=== PATIENT | male | born 1960 | race Caucasian/White ===

== ENCOUNTER 2017-02-02 08:15 | Inpatient (IN) | payer BC ==
[~2017-02-02 08:15] MED LIST: ACETAMINOPHEN 500 MG TAB PO ONE; ceFAZolin 2 GM/SWFI 2 GM/20 ML SYR IVP ONE; fentaNYL 100 MCG/2 ML INJ IT ONE; morphINE PF 5 MG/10 ML INJ IT ONE
--- NOTE | 2017-02-02 08:55 | CPEKG ---
Heart Rate: 67 RR Interval: 896 P-R Interval: 192 QRSD Interval: 176 QT Interval: 480 QTC Interval: 507 P Patton: 64 QRS Patton: 8 T Wave Patton: 164 EKG Severity - ABNORMAL ECG - EKG Impression: ATRIAL-PACED COMPLEXES EKG Impression: VENTRICULAR PREMATURE COMPLEX EKG Impression: PROBABLE LEFT ATRIAL ABNORMALITY EKG Impression: LEFT BUNDLE BRANCH BLOCK Electronically Signed By: Gilbert Paniagua 04-Feb-2017 13:25:04
[2017-02-02 09:10] LABS: % IMMATURE GRANULYOCYTES 0.6 % (0.0-1.1); ABSOLUTE IMMATURE GRANULOCYTES 0.04 10^3/uL (0.00-0.10); ADD DIFF? NO; ADD MORPH? YES; ADD SCAN? NO; ATYPICAL LYMPHOCYTE FLAG 0 (0-99); FRAGMENT RBC FLAG 20 (0-99); HEMATOCRIT 44.4 % (40.0-51.0); HEMOGLOBIN 13.5 g/dL (13.7-17.5); LEFT SHIFT FLG 0 (0-99); LIPEMIA HEMOLYSIS FLAG 80 (0-99); MEAN CELL HEMOGLOBIN CONCENTR. 30.4 g/dL (32.4-36.7); MEAN CELL VOLUME 75.8 fL (81.5-99.8); PLATELET CLUMPS FLAG 0 (0-99); PLATELET COUNT 224 10^3/uL (150-400); RED BLOOD CELL COUNT 5.86 10^6/uL (4.40-6.38)
[2017-02-02 09:22] LABS: ANION GAP 13 mEq/L (8-16); CALCIUM 9.1 mg/dL (8.5-10.4); CARBON DIOXIDE 29 mEq/l (22-31); CHLORIDE 98 mEq/L (97-110); CREATININE 0.8 mg/dL (0.7-1.3); GLOMERULAR FILTRATION RATE > 60; GLUCOSE 82 mg/dL (70-100); SODIUM 140 mEq/L (134-144)
[2017-02-02] MEDS ORDERED: THROMBIN (BOVINE) 20,000 UNIT VIAL TP ONE ×2 (09:23→13:35)
[2017-02-02] MEDS ORDERED: CITRATE DEXTROSE SOLN 500 ML BAG ONE (09:23)
[2017-02-02] MEDS ORDERED: BUPIVACAINE 0.25% 30 ML SDV ONE (09:23)
[2017-02-02] MEDS ORDERED: BACITRACIN 50,000 UNITS/10 ML SYR IRR ONE (09:24)
[2017-02-02 09:58] LABS: ELLIPTOCYTES 1+
[2017-02-02 09:59] LABS: HYPOCHROMIA 1+; PLATELET ESTIMATE ADEQUATE (ADEQ)
[2017-02-02] MEDS ORDERED: ACETAMINOPHEN 500 MG TAB ONE (10:06)
[2017-02-02] MEDS ORDERED: ceFAZolin 2 GM/SWFI 20 ML SYR IVP ONE (10:06)
[2017-02-02] MEDS ORDERED: HYDROCODONE/APAP 5/325 TAB PO ONE (10:15)
[2017-02-02] MEDS ORDERED: HYDROCODONE/APAP 10/325 TAB PO ONE (10:15)
--- NOTE | 2017-02-02 10:20 | PDHPUP ---
History & Physical Update H&P update statement: This history and physical update is based on an assessment of the patient which was completed after admission or registration (within 24 hours), but prior to the surgery/procedure. H&P update: H&P reviewed & patient examined, no change in patient's condition since H&P completed
[2017-02-02] MEDS ORDERED: MIDAZOLAM 2 MG/2 ML VIAL ONE (10:46)
[2017-02-02] MEDS ORDERED: GABAPENTIN 300 MG CAP PO PRN (10:47)
[2017-02-02] MEDS ORDERED: PRIMIDONE 50 MG TAB PO PRN (10:47)
[2017-02-02] MEDS ORDERED: traMADol 50 MG TAB PO PRN (10:47)
[2017-02-02] MEDS ORDERED: MIDAZOLAM 2 MG/2 ML VIAL IVP ONE (10:49)
--- NOTE | 2017-02-02 10:49 | PDANEPAE ---
LEANN History of Present Illness 56 year old male w/ complex past cardiac history presents for lumbar surgery. 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 Echo done today in pre -op with low normal EF. Previous TAVR. Pacemaker interogated. Greatly appreciate help of Dr. Haylee Blank / Cardiology in facilitating this information today. ANE Past Medical History - Cardiovascular History Hx Hypertension: Yes Hx Arrhythmias: Yes Hx Chest Pain: No Hx Coronary Artery / Peripheral Vascular Disease: Yes Hx CHF / Valvular Disease: Yes Hx Palpitations: No Cardiovascular History Comment: PACEMAKER PLACED 08/2016. CARDIAC ARREST 06/2016 - Pulmonary History Hx COPD: No Hx Asthma/Reactive Airway Disease: No Hx Recent Upper Respiratory Infection: No Hx Oxygen in Use at Home: No Hx Sleep Apnea: Yes Sleep Apnea Screening Result - Last Documented: Positive Pulmonary History Comment: BEKAH USES C-PAP INSTRUCTED TO BRING DOS - Neurologic History Hx Cerebrovascular Accident: No Hx Seizures: Yes Hx Dementia: No Neurologic History Comment: 8 YR HX - Endocrine History Hx Diabetes: No Hypothyroid: No Hyperthyroid: No Obesity: mild - Renal History Hx Renal Disorders: No - Liver History Hx Hepatic Disorders: No - Neurological & Psychiatric Hx Hx Neurological and Psychiatric Disorders: Yes Neurological / Psychiatric History Comment: ANXIETY AND DEPRESSION - Cancer History Hx Cancer: No - Congenital Disorder History Hx Congenital Disorders: No - Other Health History Other Health History: PVD. DDD. STENOSIS. FREQUENT FALLS/BALANCE ISSUES/ USING WALKER. FELL YR AGO INJURING BACK - Chronic Pain History Chronic Pain: Yes (LOWER BACK WITH N/T INTO BLE) - Surgical History Prior Surgeries: PACEMAKER 08/2016 IN [place]. WENC[facility]LAO CAROTID ENDARTERECTOMY 2014 IN [place]. WENCES[facility]O FEMORAL THORACIC GRAFT. AORTIC VALVE REPLACEMENT. STENTS LT EXT ILIAC & LT FEMORAL. LUMBAR FUSION. 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: [employer] LEANN Patient History - Allergies Allergies/Adverse Reactions: No Allergies [NKA] Allergy (Verified 01/25/17 12:14) - Home Medications Home medications: home medication list seen and reviewed Home Medications: ALPRAZolam [Xanax 0.25 MG (*)] 0.25 mg PO DAILY@12 01/25/17 [Last Taken 12:00] Aspirin EC [Aspirin EC 81 mg (*)] 81 mg PO DAILY 01/25/17 [Last Taken 02/02/17 07:00] Atorvastatin Calcium [Lipitor 40 mg (*)] 40 mg PO DAILY 01/25/17 [Last Taken 07:00] Clopidogrel Bisulfate [Clopidogrel] 75 mg PO DAILY 01/25/17 [Last Taken 01/26/17 ] Cyanocobalamin [Vitamin B12 1000MCG/ML (*)] 1,000 mcg IM Q7D 01/25/17 [Last Taken 01/30/17] Docusate Sodium [Colace 100 MG (*)] 100 mg PO BID 01/25/17 [Last Taken 02/02/17 07:00] Escitalopram Oxalate [Lexapro] 10 mg PO DAILY@18 01/25/17 [Last Taken 02/01/17 19:30] Furosemide [Lasix 40 MG (*)] 20 mg PO DAILY 01/25/17 [Last Taken 02/01/17 07:00] Gabapentin [Neurontin 300 MG (*)] 300 mg PO DAILY PRN 01/25/17 [Last Taken 01/31 07:00] Gabapentin [Neurontin 300 MG (*)] 600 mg PO HS 01/25/17 [Last Taken 02/01/17 19: 00] Hydrocodone/Acetaminophen [[place] 7.5-325 Tablet] 2 each PO Q8H PRN 01/25/17 [ Last Taken 02/02/17 02:00] Potassium Chloride [Klor-Con 10] 10 meq PO DAILY 01/25/17 [Last Taken 02/02/17 07:00] Primidone [Mysoline 50mg (RX)] 100 mg PO TID 01/25/17 [Last Taken 02/02/17 07:00 ] RX: Herbals/Supplements -Info Only 1 ea PO DAILY 01/25/17 [Last Taken Unknown] Tamsulosin HCl [Flomax 0.4 MG (*)] 0.4 mg PO DAILY 01/25/17 [Last Taken 07:00] clonazePAM [Klonopin (*)] 1 mg PO HS 01/25/17 [Last Taken 02/01/17 07:00 1/4 TAB ] traMADol [Ultram 50 mg (*)] 50 mg PO Q8H PRN 01/25/17 [Last Taken 01/31/17] Divalproex ER [Depakote ER 250 MG (*)] 250 mg PO DAILY 01/31/17 [Last Taken 07:00] ALPRAZolam [Xanax 0.25 MG (*)] 0.25 mg PO DAILY PRN 02/02/17 [Last Taken Unknown ] Primidone [Mysoline 50mg (RX)] 50 mg PO BID PRN 02/02/17 [Last Taken Unknown] clonazePAM [Klonopin (*)] 0.25 mg PO DAILY@08 02/02/17 [Last Taken Unknown] clonazePAM [Klonopin (*)] 0.5 mg PO DAILY PRN 02/02/17 [Last Taken Unknown] - NPO status NPO Status: no food or drink >8 hours NPO Since - Liquids (Date): 02/02/17 NPO Since - Liquids (Time): 07:30 NPO Since - Solids (Date): 02/01/17 NPO Since - Solids (Time): 19:00 - Anes Hx Anes Hx: no prior problems - Smoking Hx Smoking Status: Former smoker Marijuana use: No - Alcohol Use Alcohol Use: Rarely - Family Anes Hx Family Anes Hx: neg - N/A ANE Labs/Vital Signs - Labs Result Diagrams: 02/02/17 08:55 02/02/17 08:55 - Vital Signs Blood Pressure: 134/83 Heart Rate: 63 Respiratory Rate: 18 O2 Sat (%): 93 Height: 182.88 cm Weight: 92.986 kg ANE Physical Exam - Airway Neck exam: FROM Mallampati Score: Class 2 Mouth exam: poor dentition, mcintosh - Pulmonary Pulmonary: no respiratory distress - Cardiovascular Cardiovascular: regular rate and rhythym - ASA Status ASA Status: III ANE Anesthesia Plan Anesthesia Plan: general endotracheal anesthesia Lines/Monitors: arterial line Total IV Anesthesia: No
[2017-02-02] MEDS ORDERED: REMIFENTANIL HCL 1 MG VIAL ONE ×2 (10:53→13:06)
[2017-02-02] MEDS ORDERED: fentaNYL 100 MCG/2 ML INJ ONE ×2 (10:53→13:17)
[2017-02-02] MEDS ORDERED: PROPOFOL/EMULSION 500 MG/50 ML BOTTLE IV ONE ×2 (10:53→13:05)
[2017-02-02] MEDS ORDERED: PROPOFOL 200 MG/20 ML VIAL ONE (10:53)
[2017-02-02] MEDS ORDERED: PHENYLEPHRINE 10 MG/ML SDV ONE ×2 (10:59→11:57)
[2017-02-02] MEDS ORDERED: NS IV ONE (11:00)
[2017-02-02] MEDS ORDERED: DESMOPRESSIN ACETATE IV ONE (11:00)
[2017-02-02] MEDS ORDERED: LIDOCAINE 2% 5 ML SDV ONE (11:57)
[2017-02-02] MEDS ORDERED: ROCURONIUM 50 MG/5 ML VIAL ONE (11:57)
--- NOTE | 2017-02-02 12:22 | ECHO ---
[email or web address] [address] [address] Main: [phone] Fax: Transthoracic Echocardiogram Name: BEN GUTIERREZ MR#: [id number] Study Date: 02/02/2017 Study Time: 09:44 AM Date of : 1960 Age: 56 year(s) Height: 182.9 cm (72 in.) Weight: 92.99 kg (205 lb.) BSA: 2.15 m2 Gender: Male Examination: Echo Indication: Pre Op Back surgery, Pacemaker, TAVR Image Quality: Contrast: Requested by: Shawn Gonzales BP: 134 mmHg/83 mmHg Heart Rate: Rhythm: Indication: Pre Op Back surgery, Pacemaker, TAVR Procedure Staff Power Digger Operator: Jamir Mccormick Physician: Ryder Ayala Requesting Provider: Measurements: Chambers Valvular Assessment AV/MV Valvular Assessment TV/PV Normal Normal Normal Name Value Range Name Value Range Name Value Range Ao Mary Kay (MM): 3.1 cm (2.2 cm-3.7 AV Vmax: 1.85 m/s (1 m/s-1.7 PV Vmax: 1.05 m/s (0.6 m/s-0.9 cm) m/s) m/s) IVSd (2D): 1.0 cm (0.6 cm-1.1 AV maxP mmHg ( - ) PV PGmax: 4 mmHg ( - ) cm) AV meanP mmHg ( - ) LVDd (2D): 5.3 cm (4.2 cm-5.9 LVOT Vmax: 1.02 m/s (0.7 m/s-1.1 cm) m/s) LVDs (2D): 3.7 cm (2.1 cm-4 NAKITA (Vmax): 1.9 cm2 ( - ) cm) NAKITA (VTI): 2.4 cm ( - ) LVPWd (2D): 1.2 cm (0.6 cm-1 MV E Vmax: 0.89 m/s ( - ) cm) MV A Vmax: 0.67 m/s ( - ) LVOTd 2.1 cm 2.1 cm mm MV E/A: 1.33 ( - ) LVEF (2D): 57 (>=54 %) EF Range: 50-55 % Continued Measurements: Chambers Valvular Assessment AV/MV Name Value Name Value LADs Lon.4 cm MV E/E' Septal: 24.60 LA Area: 20.7 cm2 MV E/E' Lateral: 19.00 LA Volume: 60 ml LA Volume Index: 27.9 ml/m2 Findings: Left Ventricle: Patient: BEN GUTIERREZ Study Date: 02/02/2017 Page 1 of 2 09:44 AM Normal size left ventricle. Low normal left ventricular systolic function. The ejection fraction is estimated to be 50-55 %. Septal wall motion consistent with pacemaker/bundle branch block. Right Ventricle: Normal size right ventricle. There is a pacemaker lead noted in the right ventricle. Right Atrium: The right atrium is normal in size. Mitral Valve: Mild mitral valve leaflet calcification is present. Trivial mitral valve regurgitation. Aortic Valve: There is a TAVR in the aortic position. There are normal gradients with no evidence of perivalvular leaks.. Tricuspid Valve: The tricuspid valve is normal in appearance and function. Trivial tricuspid valve regurgitation. Pulmonic Valve: The pulmonic valve is normal in appearance and function. Aorta: The aorta is normal. Pericardium: No pericardial effusion. (No Signature Object) Patient: BEN GUTIERREZ Study Date: 02/02/2017 Page 2 of 2 09:44 AM [id number]
[2017-02-02] MEDS ORDERED: LR 500 ML IV PRN (13:02)
[2017-02-02] MEDS ORDERED: fentaNYL 100 MCG/2 ML INJ IVP PRN (13:02)
[2017-02-02] MEDS ORDERED: HYDROmorphONE/DILAUDID 1 MG/ML INJ IVP PRN (13:02)
[2017-02-02] MEDS ORDERED: ONDANSETRON 4 MG/2 ML VIAL IVP PRN ×2 (13:02→14:55)
[2017-02-02] MEDS ORDERED: NALOXONE HCL 0.4 MG/ML INJ IVP PRN ×2 (13:02→14:55)
[2017-02-02] MEDS ORDERED: OXYCODONE/APAP 5/325 TAB PO PRN (13:02)
[2017-02-02] MEDS ORDERED: morphINE PF 5 MG/10 ML INJ ONE (13:20)
--- NOTE | 2017-02-02 14:05 | GCON ---
[f rep st] CONSULTATION CARDIOLOGY CONSULT. DATE OF CONSULTATION: 02/02/2017 PRIMARY WINDCHILL ADMINISTRATOR: Lidia Alonso. CHIEF COMPLAINT: Preoperative cardiovascular evaluation. HISTORY OF PRESENT ILLNESS: We were asked by the anesthesia service and Dr. Worthington to visit w ith the patient. I have reviewed approximately 100 pages of outside records and made multiple phone calls to his primary metal roofer's office in an effort to get a complete history. The patient is a 56-year-old male with significant vascular disease. In 2008, he had coronary artery bypass grafting. He has had bilateral CEAs. In June of this year, he suffered an fpm-yo-suveetvy cardiac arrest fr om which he was resuscitated. The etiology of this was felt to be critical aortic stenosis. He was in the ICU with a tracheostomy for approximately 1 month. He ultimately underwent transaortic valve replacement in [place], where he was living at the time. Around this time, he also required bilateral fem pop bypass procedures for vascular complications. It sounds like it was related to the TAVR. He also, around that time, had an endovascular repair of thoracic aortic aneurysm. Shortly after that, he required implant of a dual-chamber [employer] pacemaker. Other history includes hypertension, fa irly small abdominal aortic aneurysm, and significant degenerative joint disease of the lumbar spine for which he now requires surgery. He is having significant lumbosacral pain that limits his activity and is requiring narcotics for sherita n control. This is the reason for his lumbar spine surgery today that is scheduled for Dr. Delicia colin. The patient reports no angina or dyspnea. No palpitations or syncope. No lower extremity carter ma. He is participating in cardiac rehab 3 times per week. He reports that he can ride the [employer] bike and use the [employer] machine with no cardiovascular limitations. He was seen by his primary metal roofer on January 20 and deemed stable for surgery, pending review of the coronary angiogram that he had done in July of this year in [place]. We have requested this actu al record of his catheterization. The patient has not had a recent stress test. PAST MEDICAL HISTORY: 1. Vascular disease as detailed above. 2. Dual chamber pacemaker implant. 3. Coronary disease as detailed above. 4. Valvular disease with history of cardiac arrest and recent TAVR. 5. Paroxysmal atrial fibrillation. 6. Hypertension. 7. Dyslipidemia. 8. Anemia. 9. DJD of the spine. 10. Depression. 11. AAA. 12. Seizure disorder. OUTPATIENT MEDICATIONS: Reviewed and not repeated here. Of note, he has been taking aspirin, but is not on a beta tom. He has remote tobacco history and quit 9 years ago. He drinks 2 glasses of wine nightly. He is and his is at the bedside. FAMILY HISTORY: Notable for coronary disease in multiple relatives. PHYSICAL EXAM: VITAL SIGNS: Blood pressure 134/83, heart rate 63, oxygen saturation 93% on room air . He is afebrile. GENERAL: This is a chronically ill-appearing middle-aged male in no acute distre ss. He has slightly slurred speech that his says has been present since his tracheostomy. HEEN T: Sclerae clear and free of jaundice. Mucous membranes are moist. Normocephalic, atraumatic. CAR DIOVASCULAR: JVP less than 10, carotids equal and 2+ without bruit. Regular rate and rhythm with a prominent S2. No murmur, rub, or gallop. LUNGS: Clear to auscultation bilaterally without wheezes, rhonchi, or rales. ABDOMEN: Soft, nontender, nondistended without bruits, masses, hepatosplenomega ly. Sternotomy scar is evident. Bilateral inguinal incisions are well healed related to bilateral f emoral-popliteal surgery. EXTREMITIES: Warm without edema. He has decreased distal pulses. NEURO: Alert and oriented x3 without gross focal neurologic deficits. Appropriate mood and affect. DIAGNOSTIC STUDIES: EKG today shows a paced rhythm with left bundle branch. LABORATORY DATA: White count 6.8, hematocrit 44, and platelets are 224. Sodium 140, potassium 4, ch loride 98, bicarb 29, BUN 15, creatinine 0.8, glucose 82, calcium 9.1. His [employer] pacemaker was interrogated at the bedside today and I have reviewed these results. He is not pacemaker dependent a nd does not pace very much in either the atrium or the ventricle. Normal device function. Very shor t runs, up to 6 seconds of atrial tachycardia recently. No ventricular arrhythmias. He had an echocardiogram at the bedside, which I have reviewed. This shows low-normal LV systolic fu nction of 55%. Abnormal septal motion consistent with left bundle branch block. He has a TAVR in th e aortic position with normal function. No other significant valvular abnormalities. ASSESSMENT AND PLAN: This is a 56-year-old male with significant vascular disease, remote coronary a rtery bypass graft, pacemaker, and valvular disease with recent transthoracic aortic valve replacemen t. He now presents for lumbar spine surgery with Dr. Worthington. This surgery is indicated for s ignificant and quality of life impacting back discomfort. I have spent approximately 60 minutes reviewing outpatient records, discussing with other physicians including Dr. Gonzales of the anesthesia service and attempting to get old records. I had a long discu ssion with the patient and his as well as Dr. Gonzales about the fact that the patient is moderate to high perioperative cardiovascular risk given his extensive history. He is currently not unstable , in that he is not having angina, any evidence of heart failure, or significant arrhythmias. The bertha flaherty and his do understand their risk and are willing to proceed. He has been on aspirin. Please restart Plavix when deemed feasible by Dr. Worthington. We are sti ll awaiting the final report from his outside angiogram from July of this year and I would like to see this prior to him going to the operating room. He is currently not on beta blockers, which would have been ideal, however, we would not start this a t this point, as it is too close to his surgery. I recommend perioperative telemetry and telemetry w raymond he remains in the hospital. Regarding his pacemaker, he is not pacemaker dependent. If there is any interference with his pacema ker related to cautery, a magnet could be placed over the device, recognizing that this may be very d ifficult in the setting of the patient's prone position intraoperatively. Thank you very much for allowing me to participate in the care of this patient. We will follow with you. Copy requested to: Dr. Herbie Soliz /[id number]/MODL
[2017-02-02] MEDS ORDERED: HYDROmorphONE/DILAUDID 2 MG/ML INJ ONE (14:38)
[2017-02-02] MEDS ORDERED: MAGNESIUM HYDROXIDE 30 ML UDCUP PO PRN (14:55)
[2017-02-02] MEDS ORDERED: ONDANSETRON DISINTEGRATING 4 MG TAB PO PRN (14:55)
[2017-02-02] MEDS ORDERED: BISACODYL 10 MG SUPP PR PRN (14:55)
[2017-02-02] MEDS ORDERED: METHOCARBAMOL 750 MG TAB PO PRN (14:55)
[2017-02-02] MEDS ORDERED: morphINE PCA 30 MG/30 ML PCA IV PRN (14:55)
[2017-02-02] MEDS ORDERED: diphenhydrAMINE 25 MG CAP PO PRN (14:55)
[2017-02-02] MEDS ORDERED: LACTULOSE 20 GM/30 ML UDCUP PO PRN (14:55)
[2017-02-02] MEDS ORDERED: NS W/ 20 KCl/L 1,000 ML IV SCH (15:00)
--- NOTE | 2017-02-02 15:00 | SOAPPROG ---
SOAP Progress Note Assessment/Plan: Assessment: 56 yo M spL3-L5 fusion Plan: stable to tele FREDI x 1 please call with neuro changes 02/02/17 14:59 Subjective: + back pain, no leg pain. Objective: Vital Signs Temp Pulse Resp BP Pulse Ox 36.4 C 63 18 134/83 H 93 02/02/17 09:21 02/02/17 10:49 02/02/17 10:49 02/02/17 10:49 02/02/17 10:49 Laboratory Results 02/02/17 08:55 02/02/17 08:55 AAOx4, + FC PERRL, EOMI, no facial droop 5/5 + light touch ICD10 Worksheet Patient Problems: Problems Problem Status Onset Fusion of spine of lumbar region Acute - ICD10 Problem Qualifiers (1) Fusion of spine of lumbar region
--- NOTE | 2017-02-02 15:42 | GOP ---
[f rep st] OPERATIVE REPORT DATE OF OPERATION: 02/02/2017 SURGEON: Charbel Worthington MD NEUROSURGEON: Charbel Worthington MD RN PALLIATIVE: LUIS Merritt ANESTHESIA: General endotracheal. PREOPERATIVE DIAGNOSIS: 1. Severe adjacent level degeneration and critical spinal stenosis at the L3-4 level status post fabien or L4-5 decompression, fusion and instrumentation at another institution. 2. Intractable low back pain. 3. Intractable left lower extremity radiculopathy. Failed conservative care. High risk surgical ca ndidate given age comorbidities including cardiac, obesity and medications including aspirin and Plav ix and other comorbidities. POSTOPERATIVE DIAGNOSIS: 1. Severe adjacent level degeneration and critical spinal stenosis at the L3-4 level status post fabien or L4-5 decompression, fusion and instrumentation at another institution. 2. Intractable low back pain. 3. Intractable left lower extremity radiculopathy. Failed conservative care. High risk surgical ca ndidate given age comorbidities including cardiac, obesity and medications including aspirin and Plav ix and other comorbidities. PROCEDURE PERFORMED: Exploration of spinal fusion, and removal of hardware at L4-5 with left sided f ar lateral transpedicular decompression at the L3-4 level with a redo left L4-5 posterior hemilaminec tessa medial facetectomy, and foraminotomy at the L4-5 level on the left. L3 through L5 posterior seg mental (pedicle screw) fixation and posterolateral fusion with local autograft bone morphogenic prote in and morselized allograft. L3-4 posterior/transforaminal lumbar interbody fusion with 2 structural PEEK interbody spacers and local autograft and morselized allograft. Use of intraoperative microscop y, fluoroscopy and computer volumetric stereotactic navigation with intraoperative neurophysiologic t esting. Injection of intrathecal narcotic analgesics, subcutaneous tissue and local anesthesia for p ostoperative pain control. FINDINGS: ESTIMATED BLOOD LOSS: 800 cc. INDICATIONS: The patient is a 56-year-old man with a history of L4-5 instrumented decompression and fusion who has severe adjacent level degeneration and spinal stenosis at the L3-4 level. He has fail ed extensive conservative care and has ongoing intractable low back pain and left lower extremity rad icular symptoms secondary to severe spinal stenosis. He is on aspirin and Plavix and is a high risk surgical candidate given his cardiac history, and obesity and also needs to stay on his aspirin throu gh the course of the surgery but the patient's intractable pain made him wish to proceed anyway, and the patient and his understand the increased risk of complications and other problems. DESCRIPTION OF PROCEDURE: After informed consent was obtained, the patient was taken to the operatin g room and placed in the prone position on the Jimmie table. The lumbosacral area was prepped and d raped in the usual sterile fashion. After fluoroscopic localization of correct levels, the subcutane ous and intramuscular tissues were infiltrated with local anesthesia. A midline linear incision was then created from approximately L3-L5. This was carried down to the fascial layer, which was then in cised using monopolar electrocautery and carried in the subperiosteal plane along the spinous process es and lamina bilaterally. Intraoperative fluoroscopy was obtained which verified the correct levels . Following this, dissection was carried out over the facet joints and the prior instrumentation was identified and carefully removed in the standard fashion at the L4-5 levels. The prior fusion was i nspected and explored and noted to be solid. The microscope was brought in and a left-sided far late ral transpedicular decompression was performed with complete unroofing of the facet joint at the L3-4 level and neural foramina at L3 and L4 as well as the central canal lateral recesses. A redo quality associate ior hemilaminectomy and medial facetectomy and foraminotomy was performed at the L4-5 level on the [facility]. Following this, the wound was copiously irrigated with antibiotic irrigation and meticulous hemo stasis was achieved. The [email or web address] neuronavigational system was then brought in and, using computer vo lumetric stereotactic navigation, pedicle screws were placed at L3, L4, and L5 bilaterally. Each ind ividual screw was tested neurophysiologically with monopolar electrostimulation and interpretation of the potentials by the surgeon. This was used in conjunction with biplanar fluoroscopy to verify the position of the screws. A slight amount of distraction was then created across the L3-4 interspace during which time a complete diskectomy was performed with preparation of the endplates and placement of 2 structural 13 mm structural interbody spacers, local autograft and morselized allograft for an L3-4 posterior/transforaminal lumbar interbody fusion. The screw and margarito system were then placed in a slight amount of compression and locked in place from L3-L5. The remaining facet joint on the rig t at the L3-4 level and the bone mass and transverse processes were then extensively decorticated fro m L3-L5 and residual local autograft from the facetectomy along with bone morphogenic protein and mor selized allograft was placed out laterally for posterolateral fusion from L3-L5. A drain was then pl aced. The subcutaneous and intramuscular tissues were re-infiltrated with local anesthesia. Then, 2 00 mcg of Duramorph along with 50 mcg of fentanyl were injected intrathecally. Following re-verifica tion of good position of the screws rods and interbody spacers using biplanar fluoroscopy, the wound was closed in a layered fashion using interrupted Vicryl sutures followed by Steri-Strips on the skin . COMPLICATIONS: None. DISPOSITION: The patient is currently in the process of being repositioned for extubation. /[id number]/MODL
[2017-02-02] MEDS: ESCITALOPRAM OXALATE 10 MG TAB PO SCH (16:52)
[2017-02-02] MEDS: POLYETHYLENE GLYCOL 3350 17 GM PKT PO SCH ×2 (16:52→20:18)
[2017-02-02] MEDS: PRIMIDONE 50 MG TAB PO SCH ×2 (17:37→20:16)
[2017-02-02] MEDS: HYDROCODONE/APAP 10/325 TAB PO PRN (17:37)
[2017-02-02] MEDS: ALPRAZolam 0.25 MG TAB PO SCH (17:38)
[2017-02-02] MEDS ORDERED: ceFAZolin 2 GM/DEXTROSE 100 ML IV SCH (20:00)
[2017-02-02] MEDS: morphINE SR 30 MG TAB PO SCH (20:14)
[2017-02-02] MEDS: SENNOSIDES/DOCUSATE SODIUM TAB PO SCH (20:15)
[2017-02-02] MEDS: GABAPENTIN 300 MG CAP PO SCH (20:15)
[2017-02-02] MEDS: clonazePAM 0.5 MG TAB PO SCH (20:16)
[2017-02-02] MEDS: DOCUSATE SODIUM 100 MG CAP PO SCH (20:17)
[2017-02-02] MEDS: FAMOTIDINE 20 MG TAB PO SCH (20:17)
--- NOTE | 2017-02-02 22:01 | POSTANESTH ---
Post Anesthetic Evaluation Cardiovascular Status: Normal, Stable, Similar to Pre-Op Cond Respiratory Status: Normal, Stable, Similar to Pre-op Cond. Level of Consciousness/Mental Status: Can Participate in Eval, Alert and Oriented Pain Control: Adequate, Prn Tx Ordered Nausea/Vomiting Control: Adequate, Prn Tx Ordered Complications Possibly Related to Anesthesia: None Noted
[2017-02-02] MEDS: ceFAZolin 2 GM/DEXTROSE 100 ML IV SCH (22:29)
[2017-02-03 04:17] LABS: % IMMATURE GRANULYOCYTES 0.4 % (0.0-1.1); ABSOLUTE IMMATURE GRANULOCYTES 0.03 10^3/uL (0.00-0.10); ADD DIFF? NO; ADD MORPH? YES; ADD SCAN? NO; ATYPICAL LYMPHOCYTE FLAG 0 (0-99); FRAGMENT RBC FLAG 20 (0-99); HEMATOCRIT 27.5 % (40.0-51.0); HEMOGLOBIN 8.4 g/dL (13.7-17.5); LEFT SHIFT FLG 0 (0-99); LIPEMIA HEMOLYSIS FLAG 80 (0-99); MEAN CELL HEMOGLOBIN 23.3 pg (27.9-34.1); MEAN CELL HEMOGLOBIN CONCENTR. 30.5 g/dL (32.4-36.7); MEAN CELL VOLUME 76.2 fL (81.5-99.8); MEAN PLATELET VOLUME 9.6 fL (8.7-11.7); PLATELET CLUMPS FLAG 0 (0-99); PLATELET COUNT 140 10^3/uL (150-400); RED BLOOD CELL COUNT 3.61 10^6/uL (4.40-6.38)
[2017-02-03] MEDS: HYDROCODONE/APAP 10/325 TAB PO PRN ×2 (04:26→17:34)
[2017-02-03 04:27] LABS: ANION GAP 7 mEq/L (8-16); CALCIUM 7.9 mg/dL (8.5-10.4); CARBON DIOXIDE 29 mEq/l (22-31); CHLORIDE 101 mEq/L (97-110); CREATININE 0.8 mg/dL (0.7-1.3); GLOMERULAR FILTRATION RATE > 60; GLUCOSE 86 mg/dL (70-100); POTASSIUM 4.7 mEq/L (3.5-5.2); SODIUM 137 mEq/L (134-144)
[2017-02-03] MEDS: TAMSULOSIN HCL 0.4 MG CAP PO SCH (04:30)
[2017-02-03 05:00] LABS: ELLIPTOCYTES 1+; HYPOCHROMIA 1+; MICROCYTES 1+; PLATELET ESTIMATE DECREASED (ADEQ)
[2017-02-03] MEDS: ceFAZolin 2 GM/DEXTROSE 100 ML IV SCH (06:03)
[2017-02-03] MEDS ORDERED: ASPIRIN EC 81 MG TAB PO SCH (09:00)
[2017-02-03] MEDS ORDERED: NON-FORMULARY NEW DRUG (Potassium Chloride [Klor-Con 10] 10 MEQ) PO SCH (09:00)
[2017-02-03] MEDS ORDERED: TAMSULOSIN HCL 0.4 MG CAP PO SCH (09:00)
--- NOTE | 2017-02-03 09:12 | NEUSURGPN ---
Date of Surgery: 02/02/17 Post Op Day: 1 Assessment/Plan: Assessment: 56 yo M sp L3-L5 fusion POD #1 Plan: -PT/OT -Wear brace when out of bed -FREDI output 300ml last night, will leave in today -Pain management -Patient accidentally pulled ellison out this am, unable to void-RN will bladder scan and straight cath as needed -Pending post op xryas today -Discussed patient with Dr Worthington -Call neurosurgery with any questions/concerns Subjective: Patient sitting in chair with lower back pain, no leg pain Objective: AxO x3 PERRLA EOMI 5/5 BUE, BLE Sensation intact to light touch BLE Dressing CDI FREDI secure-patent Neuro Check Frequency: per routine Urinary Catheter in Place: No Catheter Insertion Date: 02/02/17 - Physician Discussed Patient with : Elin Neurosurgery Physical Exam - Vitals, I&O, Labs I and O 02/02/17 02/03/17 02/04/17 05:59 05:59 05:59 Intake Total 1640 1100 Output Total 300 Balance 1340 1100 Weight 92.986 kg Intake: Oral (ml) 1240 IV Intake (ml) 400 IV Infused (ml) 0 1100 NS W/ 20 KCl/L 1,000 ml @ 0 900 75 mls/hr IV CONT BINTA Rx #:[id number] ceFAZolin 2 GM/DEXTROSE 0 200 100 ml @ 200 mls/hr IV Q8H BINTA Rx#:[id number] Output: FREDI Drain Output (ml) 300 #1 Left Back Jimmie 300 Knox Other: Intake Quantity Yes Sufficient Bladder Scan Volume (ml) Catheter 361 Vital Signs Temp Pulse Resp BP Pulse Ox 36.8 C 82 17 135/87 H 96 02/03/17 08:00 02/03/17 08:00 02/03/17 08:00 02/03/17 08:00 02/03/17 08:00 Laboratory Results 02/03/17 03:20 02/03/17 03:20 ICD10 Worksheet Patient Problems: Problems Problem Status Onset Fusion of spine of lumbar region Acute
[2017-02-03] MEDS: ENOXAPARIN 40 MG/0.4 ML SYR SC SCH (09:34)
[2017-02-03] MEDS: POLYETHYLENE GLYCOL 3350 17 GM PKT PO SCH ×2 (09:35→15:58)
[2017-02-03] MEDS: DIVALPROEX ER 250 MG TAB PO SCH (09:36)
[2017-02-03] MEDS: SENNOSIDES/DOCUSATE SODIUM TAB PO SCH (09:36)
[2017-02-03] MEDS: morphINE SR 30 MG TAB PO SCH ×2 (09:36→20:50)
[2017-02-03] MEDS: POTASSIUM CL 10 MEQ TAB PO SCH (09:36)
[2017-02-03] MEDS: ATORVASTATIN CALCIUM 40 MG TAB PO SCH (09:37)
[2017-02-03] MEDS: FAMOTIDINE 20 MG TAB PO SCH ×2 (09:37→20:50)
[2017-02-03] MEDS: DOCUSATE SODIUM 100 MG CAP PO SCH ×2 (09:37→20:50)
[2017-02-03] MEDS: PRIMIDONE 50 MG TAB PO SCH ×3 (09:46→23:58)
[2017-02-03] MEDS: ALPRAZolam 0.25 MG TAB PO SCH ×2 (11:32→11:37)
[2017-02-03] MEDS: oxyCODONE IR 5 MG TAB PO PRN ×2 (11:37→20:49)
--- NOTE | 2017-02-03 12:09 | PDCARPN ---
Cardiology Progress Note Assessment/Plan: Assessment/plan: 56 yo M with CAD s/p remote CABG; PVD (bilateral CEAs, bilateral peripheral intervention; TAA stent); dual chamber PPM; TAVR. s/p L3- 5 fusion 02/02. He has had some post op anemia and SVT, likely AT. Otherwise, stable from a cardiac standpoint. 1. CAD/PVD: appears stable. Contine ASA, statin. EF normal. 2. PSVT: has AT on pacer check. Start Toprol. 3. VHD s/p TAVR; normal function on echo yesterday 4. PPM: normal device function yesterday 5. Anemia: post op. Did have some bleeding due to ASA. Per neurosurg 6. Post op lumbar fusion: per neurosurg 7. Hypoxia: lungs clear. Possible atelectasis 02/03/17 12:16 Subjective: Adithya denies CP or SOB. He did feel fast palpitations this morning with the SVT Objective: Vital Signs (8 Hrs) Temp Pulse Resp BP Pulse Ox 02/03/17 09:42 140 H 84 L 02/03/17 08:00 36.8 C 82 17 135/87 H 96 02/03/17 03:54 36.6 C 78 15 100/72 100 Intake/Output (24 Hrs) 02/02/17 02/03/17 02/04/17 05:59 05:59 05:59 Intake Total 1640 2200 Output Total 300 450 Balance 1340 1750 Intake: Oral (ml) 1240 1100 IV Intake (ml) 400 IV Infused (ml) 0 1100 NS W/ 20 KCl/L 1,000 ml @ 0 900 75 mls/hr IV CONT BINTA Rx #:[id number] ceFAZolin 2 GM/DEXTROSE 0 200 100 ml @ 200 mls/hr IV Q8H BINTA Rx#:[id number] Output: Urine (ml) 450 Catheter 450 FREDI Drain Output (ml) 300 #1 Left Back Jimmie 300 [place] Other: Weight 92.986 kg Intake Quantity Yes Sufficient Bladder Scan Volume (ml) Catheter 361 450 Urinal 450 NAD JVP <10 RRR prominent S2; no m/r/g Lungs CTAB No edema Result Diagrams: 02/03/17 03:20 02/03/17 03:20 Telemetry: NSR. Several minutes of SVT around 9:45 ICD10 Worksheet Patient Problems: Problems Problem Status Onset Fusion of spine of lumbar region Acute
[2017-02-03] MEDS: METOPROLOL SUCCINATE XR 25 MG TAB PO SCH (13:25)
--- NOTE | 2017-02-03 14:02 | ASMTCASEMG ---
Living Arrangements What is your living Answers: With Spouse arrangement? Who do you live with? Type Of Residence What kind of residence do Answers: House you live in? Discharge Plan Comments Coordination Status Comments Notes: Pt is a 56 y/o man admitted for an adjacent level degen and stenosis. PT/OT are recommending home independent. Pt will most likely not have any needs at time of d/c. CM available for d/c needs. Plan: Independent Date Signed: 02/03/2017 02:01 PM Electronically Signed By:SCOTT Israel
[2017-02-03] MEDS: ESCITALOPRAM OXALATE 10 MG TAB PO SCH (17:34)
[2017-02-03] MEDS: clonazePAM 0.5 MG TAB PO SCH (20:50)
[2017-02-03] MEDS: GABAPENTIN 300 MG CAP PO SCH (20:50)
[2017-02-04] MEDS: POLYETHYLENE GLYCOL 3350 17 GM PKT PO SCH ×3 (01:22→16:12)
[2017-02-04] MEDS: SENNOSIDES/DOCUSATE SODIUM TAB PO SCH ×3 (01:22→22:23)
[2017-02-04] MEDS: HYDROCODONE/APAP 10/325 TAB PO PRN ×4 (03:22→22:24)
[2017-02-04] MEDS: METOPROLOL SUCCINATE XR 25 MG TAB PO SCH (08:04)
[2017-02-04] MEDS: FAMOTIDINE 20 MG TAB PO SCH ×2 (08:04→20:06)
[2017-02-04] MEDS: morphINE SR 30 MG TAB PO SCH ×2 (08:04→20:06)
[2017-02-04] MEDS: DOCUSATE SODIUM 100 MG CAP PO SCH ×2 (08:04→20:05)
[2017-02-04] MEDS: ATORVASTATIN CALCIUM 40 MG TAB PO SCH (08:08)
[2017-02-04] MEDS: PRIMIDONE 50 MG TAB PO SCH ×3 (08:08→22:22)
[2017-02-04] MEDS: DIVALPROEX ER 250 MG TAB PO SCH (08:08)
[2017-02-04] MEDS: POTASSIUM CL 10 MEQ TAB PO SCH (08:08)
[2017-02-04] MEDS: TAMSULOSIN HCL 0.4 MG CAP PO SCH (08:08)
[2017-02-04] MEDS: ENOXAPARIN 40 MG/0.4 ML SYR SC SCH (08:11)
--- NOTE | 2017-02-04 08:51 | PDCARPN ---
Cardiology Progress Note Chief Complaint: palpitations Assessment/Plan: Assessment/plan: The patient is a 56 y/o M with a history of CABG, PVD (bilateral CEA's, bilateral peripheral intervention, and TAA stent), s/p DDDR pacer, and TAVR who is followed by his recycling coordinator in [place]. He is s/p L3-[address] Paz on 02/02. He had SVT likely atrial tachycardia yesterday and was started on Toprol XL 25mg Daily. He is tolerating it well. He continues to have atrial tachy but the rate is slower at about 120BPM He is minimally symptomatic complaining only of palpitations. He denies any CP, SOB, or presyncope. His palpitations have been present for years. Will sign off. He can follow up with his Teacher Assistant at discharge. 02/04/17 08:40 Subjective: Feels better today. Complaining of palpitations this AM which correlated with SVT at a rate of 120. He denies any CP, SOB, or presyncope. Objective: Vital Signs (8 Hrs) Temp Pulse Resp BP Pulse Ox 02/04/17 08:04 83 110/88 H 02/04/17 04:00 37.2 C 81 16 106/79 95 Intake/Output (24 Hrs) 02/03/17 02/04/17 02/05/17 05:59 05:59 05:59 Intake Total 1640 3700 Output Total 300 1330 Balance 1340 2370 Intake: Oral (ml) 1240 2600 IV Intake (ml) 400 IV Infused (ml) 0 1100 NS W/ 20 KCl/L 1,000 ml @ 0 900 75 mls/hr IV CONT BINTA Rx #:[id number] ceFAZolin 2 GM/DEXTROSE 0 200 100 ml @ 200 mls/hr IV Q8H BINTA Rx#:[id number] Output: Urine (ml) 1100 Catheter 800 Urinal 300 FREDI Drain Output (ml) 300 230 #1 Left Back Jimmie 300 230 Knox Other: Weight 92.986 kg Intake Quantity Yes Yes Sufficient Number of Stools Urinal 1 Bladder Scan Volume (ml) Catheter 361 450 Urinal 397 Result Diagrams: 02/03/17 03:20 02/03/17 03:20 Telemetry: NSR with SVT this AM for 10 minutes at a rate of 120BPM - Physical Exam Constitutional: WDWN Cardiovascular: regular rate and rhythm Skin: no edema Neurologic: AAOx3 ICD10 Worksheet Patient Problems: Problems Problem Status Onset Fusion of spine of lumbar region Acute
--- NOTE | 2017-02-04 10:54 | NEUSURGPN ---
Date of Surgery: 02/02/17 Post Op Day: 2 Assessment/Plan: 56M s/p hardware removal L34/45 fusion with L34 TLIF. Has extensive cardiac history including cardiac arrest and valve replacement in 06/2016. He is doing well with expected postop pain. Will restart ASA/Plavix POD3 XRays are done and have been reviewed He is voiding and has had a BM FREDI put out 180 yesterday so this will stay in He is tolerating PO and off IV pain meds He is working with therapy If he continues to look this good and clears therapy perhaps he can be discharged tomorrow. Kev Charles MD BNA Subjective: had a BM and is voiding and this made him feel much better Objective: AAOx3 CN normal CABRERA 5/5 FREDI to suction dressing c/d/i Urinary Catheter in Place: No Catheter Insertion Date: 02/02/17 Neurosurgery Physical Exam - Vitals, I&O, Labs I and O 02/03/17 02/04/17 02/05/17 05:59 05:59 05:59 Intake Total 1640 3700 240 Output Total 300 1330 225 Balance 1340 2370 15 Weight 92.986 kg Intake: Oral (ml) 1240 2600 240 IV Intake (ml) 400 IV Infused (ml) 0 1100 NS W/ 20 KCl/L 1,000 ml @ 0 900 75 mls/hr IV CONT BINTA Rx #:[id number] ceFAZolin 2 GM/DEXTROSE 0 200 100 ml @ 200 mls/hr IV Q8H BINTA Rx#:[id number] Output: Urine (ml) 1100 225 Catheter 800 Urinal 300 225 FREDI Drain Output (ml) 300 230 #1 Left Back Jimmie 300 230 [place] Other: Intake Quantity Yes Yes Sufficient Number of Voids Urinal 1 Number of Stools Urinal 1 Bladder Scan Volume (ml) Catheter 361 450 Urinal 397 Vital Signs Temp Pulse Resp BP Pulse Ox 36.6 C 83 16 110/88 H 92 02/04/17 08:00 02/04/17 08:04 02/04/17 08:00 02/04/17 08:04 02/04/17 08:00 Laboratory Results 02/03/17 03:20 02/03/17 03:20 ICD10 Worksheet Patient Problems: Problems Problem Status Onset Fusion of spine of lumbar region Acute
[2017-02-04] MEDS: ALPRAZolam 0.25 MG TAB PO SCH ×2 (11:47→17:15)
[2017-02-04] MEDS: oxyCODONE IR 5 MG TAB PO PRN ×2 (11:51→20:06)
[2017-02-04] MEDS: ESCITALOPRAM OXALATE 10 MG TAB PO SCH (17:15)
[2017-02-04] MEDS: GABAPENTIN 300 MG CAP PO SCH (20:06)
[2017-02-04] MEDS: clonazePAM 0.5 MG TAB PO SCH (22:22)
[2017-02-05] MEDS: POLYETHYLENE GLYCOL 3350 17 GM PKT PO SCH ×3 (02:51→16:51)
[2017-02-05] MEDS: HYDROCODONE/APAP 10/325 TAB PO PRN (05:43)
[2017-02-05] MEDS ORDERED: ASPIRIN EC 81 MG TAB PO SCH (09:00)
[2017-02-05] MEDS: ATORVASTATIN CALCIUM 40 MG TAB PO SCH (09:14)
[2017-02-05] MEDS: DIVALPROEX ER 250 MG TAB PO SCH (09:15)
[2017-02-05] MEDS: DOCUSATE SODIUM 100 MG CAP PO SCH (09:15)
[2017-02-05] MEDS: SENNOSIDES/DOCUSATE SODIUM TAB PO SCH (09:15)
[2017-02-05] MEDS: TAMSULOSIN HCL 0.4 MG CAP PO SCH (09:15)
[2017-02-05] MEDS: ENOXAPARIN 40 MG/0.4 ML SYR SC SCH (09:15)
[2017-02-05] MEDS: POTASSIUM CL 10 MEQ TAB PO SCH (09:16)
[2017-02-05] MEDS: morphINE SR 30 MG TAB PO SCH (09:16)
[2017-02-05] MEDS: METOPROLOL SUCCINATE XR 25 MG TAB PO SCH (09:16)
[2017-02-05] MEDS: PRIMIDONE 50 MG TAB PO SCH (09:16)
[2017-02-05] MEDS: FAMOTIDINE 20 MG TAB PO SCH (09:16)
--- NOTE | 2017-02-05 09:43 | NEUSURGPN ---
Assessment/Plan: 56M s/p hardware removal L34/45 fusion with L34 TLIF. Has extensive cardiac history including cardiac arrest and valve replacement in 06/2016. He is doing well with expected postop pain. May restart ASA/Plavix today XRays are done and have been reviewed He is voiding and has had a BM Remove FREDI drain today He is tolerating PO and off IV pain meds He is working with therapy Discharge home today. Subjective: Doing well. Pain controlled. Eager to go home today. Objective: Awake. Alert. PERRL. EOMI Facial expression symmetrical Muscle strength full 5/5 Sensation intact Catheter Insertion Date: 02/02/17 - Physician Discussed Patient with : Elin Neurosurgery Physical Exam - Vitals, I&O, Labs I and O 02/04/17 02/05/17 02/06/17 05:59 05:59 05:59 Intake Total 3700 2140 Output Total 1330 2235 Balance 2370 -95 Intake: Oral (ml) 2600 2140 IV Infused (ml) 1100 NS W/ 20 KCl/L 1,000 ml @ 900 75 mls/hr IV CONT BINTA Rx #:[id number] ceFAZolin 2 GM/DEXTROSE 200 100 ml @ 200 mls/hr IV Q8H BINTA Rx#:[id number] Output: Urine (ml) 1100 2225 Catheter 800 Urinal 300 2225 FREDI Drain Output (ml) 230 10 #1 Left Back Jimmie 230 10 Knox Other: Intake Quantity Yes Yes Sufficient Number of Voids Urinal 4 Number of Stools Urinal 1 Bladder Scan Volume (ml) Catheter 450 Urinal 397 Vital Signs Temp Pulse Resp BP Pulse Ox 37.0 C 95 19 111/71 96 02/05/17 08:00 02/05/17 08:00 02/05/17 08:00 02/05/17 08:00 02/05/17 08:00 Laboratory Results 02/03/17 03:20 02/03/17 03:20 ICD10 Worksheet Patient Problems: Problems Problem Status Onset Fusion of spine of lumbar region Acute
[2017-02-05] MEDS: oxyCODONE IR 5 MG TAB PO PRN (10:52)
--- NOTE | 2017-02-05 11:40 | PDHOMEO2F ---
Home Oxygen Face to Face Home Orders: I certify that a physician or a nurse practitioner or physician's molding line assistant has had a icxx-mt-groy encounter with this patient on the date of this order due to the diagnosis listed, which relates to the primary reason the patient requires home oxygen. Alternative treatments have been tried, or considered, and deemed ineffective. It is anticipated that supplemental oxygen will result in improvement with treatment. Home oxygen qualifying diagnosis: Hypoxemia SpO2 on room air (%): 82 Frequency of home oxygen needed: continuous Home oxygen liters per minute: 2.5 Home oxygen delivery device: nasal cannula Concentrator: Yes E-tanks for mobility and back up: Yes If ordering portable O2, is the patient mobile in the home?: Yes I certify that, based on these findings, the home oxygen is medically necessary for this patient for the following length of time. Length of time home oxygen needed: 1 month
[2017-02-05] MEDS: ALPRAZolam 0.25 MG TAB PO SCH (12:37)
[2017-02-05 14:01] LABS: % IMMATURE GRANULYOCYTES 0.5 % (0.0-1.1); ABSOLUTE IMMATURE GRANULOCYTES 0.03 10^3/uL (0.00-0.10); ADD DIFF? NO; ADD MORPH? YES; ADD SCAN? NO; ATYPICAL LYMPHOCYTE FLAG 0 (0-99); FRAGMENT RBC FLAG 20 (0-99); HEMATOCRIT 25.2 % (40.0-51.0); HEMOGLOBIN 7.7 g/dL (13.7-17.5); LEFT SHIFT FLG 0 (0-99); LIPEMIA HEMOLYSIS FLAG 80 (0-99); MEAN CELL HEMOGLOBIN 24.2 pg (27.9-34.1); MEAN CELL HEMOGLOBIN CONCENTR. 30.6 g/dL (32.4-36.7); MEAN CELL VOLUME 79.2 fL (81.5-99.8); MEAN PLATELET VOLUME 8.8 fL (8.7-11.7); PLATELET CLUMPS FLAG 0 (0-99); PLATELET COUNT 127 10^3/uL (150-400); RED BLOOD CELL COUNT 3.18 10^6/uL (4.40-6.38)
[2017-02-05 14:08] LABS: RED CELL DISTRIBUTION WIDTH 21.7 % (11.5-15.2)
[2017-02-05 14:10] LABS: ANION GAP 9 mEq/L (8-16); CALCIUM 8.2 mg/dL (8.5-10.4); CARBON DIOXIDE 31 mEq/l (22-31); CHLORIDE 98 mEq/L (97-110); CREATININE 0.7 mg/dL (0.7-1.3); GLOMERULAR FILTRATION RATE > 60; GLUCOSE 98 mg/dL (70-100); POTASSIUM 5.1 mEq/L (3.5-5.2); SODIUM 138 mEq/L (134-144)
--- NOTE | 2017-02-05 14:26 | CPEKG ---
Heart Rate: 76 RR Interval: 789 P-R Interval: 192 QRSD Interval: 166 QT Interval: 412 QTC Interval: 464 P Risco: 62 QRS Risco: 48 T Wave Risco: 207 EKG Severity - ABNORMAL ECG - EKG Impression: SINUS RHYTHM EKG Impression: PROBABLE LEFT ATRIAL ABNORMALITY EKG Impression: LEFT BUNDLE BRANCH BLOCK Electronically Signed By: Meir Rios 07-Feb-2017 06:15:46
[2017-02-05 14:34] LABS: HYPOCHROMIA 1+; MICROCYTES 1+; PLATELET ESTIMATE DECREASED (ADEQ)
[2017-02-05 15:45] VITALS: BP 138/86; PULSE 82; RESP 11; TEMP 99.6; O2SAT 99
--- NOTE | 2017-02-05 16:14 | GCON ---
[f rep st] CONSULTATION MEDICINE CONSULTATION DATE OF CONSULTATION: 02/05/2017 REFERRING PHYSICIAN: Charbel Worthington MD REASON FOR CONSULTATION: Postop hypoxia. CHIEF COMPLAINT: Back pain. HISTORY: This is a 56-year-old man, who is 3 days status post revision of lumbar spinal fusion, with L4 through 5 hemilaminectomy, medial facetectomy and foraminotomy, as well as L3 through 5 posterior segment fixation and posterior lateral fusion. He has been doing well in the postoperative period, with the exception of some postoperative hypoxia, for which he has been requiring 2-3 L of supplement al O2 to continue to maintain his saturations in the high 90s. He does have a significant past cardi ac history with prior valvular heart disease and cardiac arrest, as well as history of a TAVR. He is a nonsmoker and does not have any chronic lung issues that he is aware of. He notes that he feels f ine and thinks that some of our concerns are related to the pulse oximeter being incorrect. His pain is controlled. He is ambulating reasonably well. He is eager to discharge home. He has not had an y fevers or chills. He denies any cough. He does not have any chest pain or pain in his legs. PAST MEDICAL HISTORY: 1. Coronary artery disease. 2. Valvular heart disease with history of cardiac arrest. 3. Peripheral vascular disease. 4. Paroxysmal atrial fibrillation. 5. Hypertension. 6. Hyperlipidemia. 7. Chronic anemia. 8. AAA. 9. Seizure disorder. 10. Spinal stenosis of the lumbar spine and intractable low back pain. 11. Left lower extremity radiculopathy. PAST SURGICAL HISTORY: 1. TAVR. 2. Lumbar fusion and revision surgery as detailed above. 3. CABG. 4. Bilateral CEAs. 5. Endovascular repair of thoracic aortic aneurysm. 6. Dual chamber pacemaker. 7. Tracheostomy. 8. Bilateral fem-pop bypass. FAMILY HISTORY: Notable for coronary disease in multiple relatives. SOCIAL HISTORY: The patient drinks 2 glasses of wine nightly in general. He was a prior smoker, but quit 10 years ago. He is , and he and his live in [place]. REVIEW OF SYSTEMS: A 10-point review of systems obtained and negative except as per HPI. HOME MEDICATIONS: 1. Clonazepam. 2. Depakote. 3. Xanax. 4. Primidone. 5. Klonopin. 6. Atorvastatin. 7. Aspirin. 8. Lexapro. 9. Docusate. 10. Clopidogrel. 11. Gabapentin. 12. Lasix. 13. Tramadol. 14. Tamsulosin. 15. Cyanocobalamin. ALLERGIES: No known drug allergies. PHYSICAL EXAMINATION: VITAL SIGNS: BP 120/78, heart rate 85, respiratory rate 12, O2 sats 98% on 3 L. He was 82% on room air. Temperature is 37.2. GENERAL APPEARANCE: This is an overweight, Caucas mary male. He is awake and alert. He is in no acute distress. EYES: Anicteric. HENT: Oropharynx clear. CARDIOVASCULAR: RRR, systolic murmur appreciated upper sternal border. Distal pulses are symmetrica l and intact. PULMONARY: CTA bilaterally. Normal work of breathing. ABDOMEN: Soft, nontender, no ndistended. EXTREMITIES: No clubbing, cyanosis, or edema. SKIN: Warm, dry, well perfused. NEURO/ PSYCH: Oriented and appropriate, calm, pleasant. CLINICAL DATA: Labs reviewed and notable for white blood cell count of 5.8, hematocrit of 25.2, preo p it was 44.4, platelets of 127. Chemistries unremarkable. EKG personally reviewed and interpreted, shows A paced complexes with a left bundle branch block that is unchanged from prior. Chest x-ray: Personally reviewed and interpreted, shows a small right pleural effusion versus pleura l scarring, which compared to old x-ray is unchanged. Otherwise, evidence of prior interventions inc luding TAVR and pacemaker are unchanged from prior. Cardiomegaly is also unchanged. Nothing to sugg est pneumonia or pneumothorax. ASSESSMENT/PLAN: This is a 56-year-old man with significant past medical history that includes valvu lar heart disease, coronary artery disease, peripheral vascular disease, and lumbar stenosis, status post revision of lumbar fusion with postoperative hypoxia. 1. Acute hypoxic respiratory failure. The patient continues to require low-flow oxygen to maintain his O2 sats above 90 three days postop. This is in the setting of very limited mobility and multiple sedating medications, including his usual home doses of various benzodiazepines, as well as the rosette tion of oxycodone and MS Contin. I suspect his hypoxia is due simply to atelectasis and likely hypov entilation related to medications. He is planning to wean off these medications relatively quickly, and does not any sort of significant symptoms related to his mild hypoxia. I doubt PE giv en that he has been appropriately prophylaxed in the postop setting and does not have any chest pain, or leg pain, or tachycardia. At this point, it seems most appropriate to allow him to discharge nadiya e with supplemental O2, and a plan to follow up with his primary care physician in the next week to d etermine length of treatment. Some of this is likely exacerbated by his anemia, as next. 2. Anemia. Patient with anemia secondary to likely expected postoperative blood loss. His hematocr it went from 44.4 to 25.2. He is relatively asymptomatic from this. Denies any dizziness, lighthead edness, etc. No reason to suspect active continued bleeding, and H and H have been stable over the l ast 48 hours. 3. Coronary artery disease, again status post CABG. Patient denies any chest pain. He has a left b undle that is old and unchanged. He is continued on aspirin, statin, beta tom, and will continue follow up with his usual physician. 4. Peripheral vascular disease. Again, with a history of bilateral CEAs and bilateral fem-pop bypas s. It does not appear to be an active issue and will be continued on aspirin and statin as per above . 5. Valvular heart disease. Again, patient with TAVR. Echocardiogram performed during this hospital ization reviewed by Cardiology without any new concerns found. Will continue to follow up with his [facility] physician. 6. Disposition. This will be per Neurosurgery, though I do not see any medical reason to defer his discharge. I did discuss with him that he will need to follow up with his primary care physician in the following days to determine how much longer he will require oxygen, and also reiterated the impor tance of tapering off pain medications as quickly as possible. Thank you for this consultation. Medicine will continue to follow while patient is in-house. Patient is new to my care. Old records reviewed, summarized as per HPI and past medical history. Ca re plan reviewed with Neurosurgery. /[id number]/MODL
--- NOTE | 2017-02-05 18:09 | ASDISCHSUM ---
Discharge Information Plan Status:Home with No Needs Medically Cleared to Leave:02/04/2017 Discharge Date:02/05/2017 04:50 PM CM D/C Disposition:Home, Routine, Self-Care ADT D/C Disposition:Home, Routine, Self-Care Projected Discharge Date:02/05/2017 05:00 PM Transportation at D/C: Discharge Delay Reason: Follow-Up Date:02/05/2017 05:00 PM Discharge Slot: Final Diagnosis:Lumbar spinal fusion, respiratory failure Placement Information Patient Contact Information Contact Name:JOSSIE Relationship: Address:[address] Work Phone: City:[facility] Phone: [facility]/Zip Code:[place] [address] Email: Financial Information Financial Class:HMO and PPO Plans Primary Plan Desc: OUT OF STATE PPO Primary Plan Number:[id number] Secondary Plan Desc: Secondary Plan Number: Assessment Information [facility] Initial CM Assessment Living Arrangements What is your living Answers: With Spouse arrangement? Who do you live with? Type Of Residence What kind of residence do Answers: House you live in? Discharge Plan Comments Coordination Status Comments Notes: Pt is a 56 y/o man admitted for an adjacent level degen and stenosis. PT/OT are recommending home independent. Pt will most likely not have any needs at time of d/c. CM available for d/c needs. Plan: Independent Date Signed: 02/03/2017 02:01 PM Electronically Signed By:SCOTT Israel Case Management Discharge Plan Note Case Management Discharge Discharge Order Complete? Answers: Yes Patient to Obtain Answers: via Family Medications Transportation Arranged Answers: Family/Friends Transport will Pick (Date 02/05/2017 12:00 AM & Time) Family Notified Answers: Yes Notes: Family to transport Discharge Comments Notes: Patient discharged today. RT set patient up with O2 at home. Lives with . No other needs Date Signed: 02/05/2017 06:08 PM Electronically Signed By:Maggy Vaughn LCSW Intervention Information
== END 2017-02-05 16:50 | disposition home or self-care (01) | DRG 459 ==
LOC: F3N 08:15 → F2W 16:30
PROVIDERS: ADMIT Neurological Surgery; ATTEND Neurological Surgery
PROC: 0ST20ZZ Resection of Lumbar Vertebral Disc, Open Approach (ICD-10-PCS; principal; 2017-02-02 10:45)
PROC: 8E0WXBZ Computer Assisted Procedure of Trunk Region (ICD-10-PCS; principal; 2017-02-02 10:45)
PROC: 4A1004G Monitoring of Central Nervous Electrical Activity, Intraoperative, Open Approach (ICD-10-PCS; principal; 2017-02-02 10:45)
PROC: 00NY0ZZ Release Lumbar Spinal Cord, Open Approach (ICD-10-PCS; principal; 2017-02-02 10:45)
PROC: 0SG10AJ Fusion of 2 or more Lumbar Vertebral Joints with Interbody Fusion Device, Posterior Approach, Anterior Column, Open Approach (ICD-10-PCS; principal; 2017-02-02 10:45)
DX: M48.061 Spinal stenosis, lumbar region without neurogenic claudication (principal); J96.01 Acute respiratory failure with hypoxia; D62 Acute posthemorrhagic anemia; M54.16 Radiculopathy, lumbar region; I25.10 Atherosclerotic heart disease of native coronary artery without angina pectoris; Z95.1 Presence of aortocoronary bypass graft; I73.9 Peripheral vascular disease, unspecified; Z95.0 Presence of cardiac pacemaker; Z95.4 Presence of other heart-valve replacement; Z98.1 Arthrodesis status
CPT/HCPCS: 97116-GP; 97161-GP; 97166-GO; 97530-GP; 97535-GO; C1713; C1762; J0171; J0690; J1170; J1650; J2250; J2274; J2370; J2405; J2597; J2704; J3010; J7060